=== PATIENT | male | born 1980 | race Caucasian/White ===

== ENCOUNTER 2016-11-02 11:00 | Emergency (ER) | payer MEDICAID, OTHER ==
[~2016-11-02] VITALS: Ht 175.3 cm; Wt 70.0 kg
[~2016-11-02 11:00] MED LIST: CHLO.12%30 SSP; CLIN150 PO
[2016-11-02 11:01] VITALS: BP 142/84; PULSE 76; RESP 24; TEMP 97.7; O2SAT 98
[2016-11-02] MEDS ORDERED: PROPARACAINE HCL 0.5% OPHT SOLN 15 ML BTL RIGHT EYE ONE (11:30)
--- NOTE | 2016-11-02 11:38 | PD ---
HPI Chief Complaint: Eye Problems/Injury Time Seen by Provider: 11:20 Travel History International Travel<30 days: No Contact w/Intl Traveler<30days: No Traveled to known affect area: No History of Present Illness HPI 36-year-old male presents for evaluation of right eye pain. He is a welder plastic. He reports that yesterday he was welding a truck bed with no helmet on and since then he has had pain and photosensitivity in the right eye. He has had some photosensitivity and left eye as well. He reports that there is some foreign debris that he was able to remove with a magnet. He reports that as a welder plastic he gets foreign debris in his eyes quite frequently and this is not unusual for him. The pain is a throbbing pain, constant, worse with light exposure. Last tetanus vaccination 2 years ago. No other complaints. [facility] Past Medical History Medical History: Denies Significant Hx Tetanus Vaccination: Unknown Past Surgical History Abdominal Surgery: Yes (hernia) Social History Alcohol Use: No Tobacco Use: Yes Substance Use: No Allergies-Medications (Allergen,Severity, Reaction): Coded Allergies: Sulfa (Unverified Allergy, Severe, RASH, 11/02/16) Reported Meds & Prescriptions Reported Meds & Active Scripts Active No Active Prescriptions or Reported Medications Review of Systems Except as stated in HPI: all other systems reviewed are Neg Physical Exam Narrative GENERAL: Well-developed well-nourished male in no acute distress SKIN: Warm and dry. HEAD: Atraumatic. Normocephalic. EYES: Pupils equal and round reactive to light extraocular muscles are intact. Right eye conjunctival injection is present. There is an obvious corneal abrasion at the 2 to 3 o'clock position on the right eye not overlying the pupil. Wood's lamp confirms this. Negative Blaise's. There was small amount of foreign debris under the right upper eyelid which was removed. Slit lamp confirms corneal abrasion with some rust ring and foreign debris still embedded in the cornea. ENT: No nasal bleeding or discharge. Mucous membranes pink and moist. NECK: Trachea midline. No JVD. Data Data Last Documented VS Vital Signs Date Time Temp Pulse Resp B/P Pulse Ox O2 Delivery O2 Flow Rate FiO2 11/02/16 11:01 97.7 76 24 142/84 98 Room Air Orders Proparacaine 0.5% Opth Soln (Alcaine 0.5 (11/02/16 11:30) MDM Medical Decision Making Medical Screen Exam Complete: Yes Emergency Medical Condition: Yes Medical Record Reviewed: Yes Differential Diagnosis Corneal abrasion, retained foreign body, keratitis, iritis Narrative Course Examination is consistent with right eye corneal abrasion/rust ring. Discussed with Dr. Montez the speech instructor on-call who would be happy to see the patient around 1 PM today. The patient will be discharged and advised to head over there. Diagnosis Primary Impression: Corneal rust ring of right eye Referrals: Rose Montez MD Additional Instructions: Follow-up with Dr. Montez as discussed, call her office to confirm an appointment around 1 PM today. Return for any emergent medical conditions. Med/Other Pt SpecificInfo: No Change to Meds Scripts No Active Prescriptions or Reported Meds Disposition: 01 DISCHARGE HOME Condition: Stable Yon Spaulding Nov 02, 2016 11:38
== END 2016-11-02 12:59 | disposition home or self-care (01) ==
LOC: NEPK 11:00
DX: H18.891 Other specified disorders of cornea, right eye (principal)
CPT/HCPCS: 99283